=== PATIENT | female | born 1990 | race Caucasian/White ===

== ENCOUNTER 2024-03-15 08:02 | Emergency (ER) | payer OTHER ==
[~2024-03-15] VITALS: Ht 152.4 cm; Wt 68.0 kg
[2024-03-15 08:13] VITALS: BP 130/89; PULSE 103; RESP 18; TEMP 36.94740; O2SAT 99
== END 2024-03-15 09:05 | disposition home or self-care (01) ==
LOC: ER 08:11
DX: S01.01XA Laceration without foreign body of scalp, initial encounter (principal); W13.8XXA Fall from, out of or through other building or structure, initial encounter; Y93.89 Activity, other specified; Y92.89 Other specified places as the place of occurrence of the external cause; Y99.8 Other external cause status
CPT/HCPCS: 12002; 99282; Z7610